=== PATIENT | male | born 1970 | race Caucasian/White ===

== ENCOUNTER 2017-07-07 22:34 | Inpatient (IN) | payer OTHER ==
[~2017-07-07] VITALS: Ht 180.3 cm; Wt 61.2 kg
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
[2017-07-07 22:49] LABS: BASOPHIL % 0.4 %; EOSINOPHIL % 0.2 %; HEMATOCRIT 27.7 % (37.0-53.0); HEMOGLOBIN 9.7 g/dL (12.0-17.0); IMMATURE GRANULOCYTE % 0.7 %; LYMPHOCYTE # 0.8 K/uL (0.8-4.0); MCH 32.7 pg (27.0-34.0); MCV 93.3 fl (83.0-98.0); MONOCYTE # 0.5 K/uL (0.0-1.0); MONOCYTE % 9.5 %; NEUTROPHIL # (ANC) 4.1 K/uL (1.4-9.0); NEUTROPHIL % 74.2 %; NRBC % 0 /100WBC (0-0.00); PLATELET COUNT 223 K/uL (150-450); RBC 2.97 M/uL (4.00-6.00); RDW-CV 12.7 % (11.9-14.6); WBC 5.6 K/uL (4.0-11.0)
[2017-07-07 23:05] LABS: ALBUMIN 2.8 gm/dL (3.5-5.0); ALK PHOS 54 IU/L (33-138); ALT 38 IU/L (12-78); ANION GAP 15.1 (10.0-19.0); AST 69 IU/L (10-40); BLOOD UREA NITROGEN 4 mg/dL (6-24); CHLORIDE 108 mMol/L (96-110); CO2 18 mMol/L (22-32); CREATININE 0.6 mg/dL (0.6-1.3); POTASSIUM 4.1 mMol/L (3.7-5.1); SODIUM 137 mMol/L (135-145); TOTAL BILIRUBIN 0.3 mg/dL (0.0-1.5); TOTAL PROTEIN 5.3 g/dL (6.0-8.4)
[2017-07-07 23:10] LABS: CALCIUM 6.1 mg/dL (8.5-10.5)
[2017-07-08 03:39] LABS: BILIRUBIN URINE NEGATIVE (NEGATIVE); BLOOD URINE 250 /UL (NEGATIVE); COLOR URINE YELLOW (YELLOW); GLUCOSE URINE NEGATIVE (NEGATIVE); KETONE URINE 5 mg/dL (NEGATIVE); LEUKOCYTES URINE NEGATIVE /UL (NEGATIVE); NITRITE URINE NEGATIVE (NEGATIVE); PROTEIN URINE NEGATIVE (NEGATIVE); TURBIDITY URINE CLEAR (CLEAR); UROBILINOGEN URINE NORMAL (NORMAL)
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
[2017-07-08 03:47] LABS: BACTERIA URINE NEGATIVE (NEGATIVE); EPITHELIAL URINE RARE #/HPF (NEGATIVE); WBC URINE NEGATIVE #/HPF (NEGATIVE)
[2017-07-08 03:59] LABS: BARBITURATE NEGATIVE (NEGATIVE); OPIATES NEGATIVE (NEGATIVE)
[2017-07-08 04:08] LABS: AMPHETAMINE NEGATIVE (NEGATIVE)
[2017-07-08 04:09] LABS: COCAINE NEGATIVE (NEGATIVE)
--- NOTE | 2017-07-08 05:01 | NUR ---
Significant Event: The patient is Alert and Oriented x3. Denies Numbness and Tingling. Moves all extremities spontaneously and to command. Lower extremities moderate strength and moves with difficulty. Bedrest, HOB can be up to 30 degrees. Right chest tube to suction, 86ml out this shift. VSS. On room air. Lungs are Clear and Diminished to diminished in the bases. Scattered abrasions and bruising. Chest tube dressing intact to right chest. Slightly nauseated. Pain to chest from rib fractures and chest tube, ice applied. Ice chips and sips of water for now. PIV to the right forearm infusing NS at 125ml/hr. PIV to the Left forearm saline locked. Follow up:
[2017-07-08 08:31] LABS: HEMATOCRIT 27.4 % (37.0-53.0); HEMOGLOBIN 9.5 g/dL (12.0-17.0)
--- NOTE | 2017-07-08 16:29 | NUR ---
Significant Event: Alert and oriented. Vital signs stable. Pain controlled to tolerable level with scheduled ibuprofen. Up to chair this afternoon with walker and 2 person assist. Chest tube intact with 30mL output. Pleasant and cooperative. Follow up: continue
[2017-07-09 04:54] LABS: BASOPHIL % 0.4 %; EOSINOPHIL % 0.6 %; HEMATOCRIT 25.4 % (37.0-53.0); HEMOGLOBIN 8.9 g/dL (12.0-17.0); IMMATURE GRANULOCYTE % 0.2 %; MCH 32.5 pg (27.0-34.0); MCV 92.7 fl (83.0-98.0); MONOCYTE # 0.6 K/uL (0.0-1.0); MONOCYTE % 12.4 %; MPV 8.6 fl (9.4-12.4); NEUTROPHIL % 64.4 %; NRBC % 0 /100WBC (0-0.00); PLATELET COUNT 198 K/uL (150-450); RBC 2.74 M/uL (4.00-6.00); RDW-CV 12.8 % (11.9-14.6); WBC 4.7 K/uL (4.0-11.0)
[2017-07-09 05:12] LABS: ALBUMIN 2.7 gm/dL (3.5-5.0); ANION GAP 10.1 (10.0-19.0); CALCIUM 7.5 mg/dL (8.5-10.5); CHLORIDE 106 mMol/L (96-110); CO2 25 mMol/L (22-32); CREATININE 0.5 mg/dL (0.6-1.3); POTASSIUM 4.1 mMol/L (3.7-5.1); SODIUM 137 mMol/L (135-145)
[2017-07-09 05:13] LABS: BLOOD UREA NITROGEN 7 mg/dL (6-24); PHOSPHORUS 1.4 mg/dL (2.5-4.9)
--- NOTE | 2017-07-09 05:47 | NUR ---
Significant Event: PT A/O X3, NO COMPLAINTS OF N/T. MOVES ALL EXTREMITIES WELL. REMAINS SR-ST ON MONITOR, AFEBRILE. REMAINS ON RA, CT OUTPUT 50 ML S/S DRAINAGE, NO CREPETIS AROUND CT INSERTION SITE. OCCASIONAL COMPLAINTS OF SHARP PAIN NEAR CHEST TUBE INSERTION SITE WITH DEEP BREATHS OR COUGHING. TOLERATING PO INTAKE WELL, NO BM THIS SHIFT. UOP ADEQUATE. Follow up: CHANGE TO MED/SURG STATUS TODAY, CONTINUE TO ENCOURAGE MOBILITY TOLERATED. MICHAEL HEATH RN
--- NOTE | 2017-07-09 13:35 | NUR ---
Introduced self and role of care management to pt. Pt lives in [place] with his mother and has plenty of family members around. He does not have insurance just the liability. He does not have a walker but states he can find one. I encouraged him to ask family to find one or borrow one. He states home once the chest tube is out. WIll continue to follow and assist as needed.
--- NOTE | 2017-07-09 16:51 | NUR ---
Significant Event: Patient is A/O x3. No numbness/tingling. Patient reports pain in back, rib, hip area. Equal strength in all extremeties, partial weight bearing on the left leg when ambulating with PT. SR with HRs 80s-90s, afibrile, right lateral chest tube, changed to waterseal, 10ml out this shift, no SOB, no crepitis. Lungs sounds clear, dim on the LRL, patient uses IS frequently. Patient has hypoactive bowel sounds, poor appetite, no BM. Vds per urinal, clear yellow. Patient made floor status today. Follow up: Continue to monitor.
[2017-07-10 04:57] LABS: HEMATOCRIT 25.1 % (37.0-53.0); HEMOGLOBIN 8.8 g/dL (12.0-17.0)
--- NOTE | 2017-07-10 17:23 | NUR ---
AAOx3. Cooperative with cares. Up with 1 assist, GB, walker; increased pain w/ambulation. Bilat PIVs s/l'd. Tolerating regular diet well. R)chest tube pulled this afternoon by ; foam tape dressing intact. Gave Percocet x1 today with relief. Possible d/c tomorrow.
--- NOTE | 2017-07-11 03:36 | NUR ---
Significant Event: PT AO. VSS ON RA, AFEBRILE. DRESSING TO R CHEST FROM CHEST TUBE REMOVAL SITE C/D/I. DID NOT AMBULATE THIS SHIFT. VOIDED PER URINAL. TOLERATED SMALL AMOUNT OF REGULAR DIET. SALINE LOCKED IVS TO R AND L FA. PRN PERCOCET X1 AT 0039. SCHEDULED MOTRIN. USES INCENTIVE SPIROMETER. PLAN IS TO GO HOME WITH HOME HEALTH WHEN READY. Follow up: CONTINUE TO MONITOR
[2017-07-11] MEDS ORDERED: COLACE100 MG PO (13:03)
[2017-07-11] MEDS ORDERED: MOTRIN800 MG PO (13:03)
[2017-07-11] MEDS ORDERED: PERCOCET 5-3251 EACH PO (13:04)
[2017-07-11] MEDS ORDERED: ASPIRIN325 MG PO (13:04)
--- NOTE | 2017-07-11 16:53 | NUR ---
DISCHARGE: Pt. and mother were explained discharge instructions, educated on new medications, pneumothorax cares, quitting smoking, and scripts. No questions or concerns. Verbalized understanding of teaching. IV removed by primary nurse. Left with all belongings and prescriptions. Taken to front door by virtual nurse and driven home by mother.
== END 2017-07-11 14:19 | disposition disaster alternative care site (69) | DRG 964 ==
LOC: GACC 22:34 → GMSU 07-08 01:05 → GICU 07-08 01:05 → GMSU 07-09 21:07
PROVIDERS: Emergency Medicine; Physician Assistant; ADMIT Surgery
DX: S32.302A Unspecified fracture of left ilium, initial encounter for closed fracture (principal); J90 Pleural effusion, not elsewhere classified; S27.321A Contusion of lung, unilateral, initial encounter; S22.43XA Multiple fractures of ribs, bilateral, initial encounter for closed fracture; S12.9XXA Fracture of neck, unspecified, initial encounter; S32.009A Unspecified fracture of unspecified lumbar vertebra, initial encounter for closed fracture; S12.600A Unspecified displaced fracture of seventh cervical vertebra, initial encounter for closed fracture; S22.000A Wedge compression fracture of unspecified thoracic vertebra, initial encounter for closed fracture; S22.070A Wedge compression fracture of T9-T10 vertebra, initial encounter for closed fracture; S22.080A Wedge compression fracture of T11-T12 vertebra, initial encounter for closed fracture; S32.050A Wedge compression fracture of fifth lumbar vertebra, initial encounter for closed fracture; K63.9 Disease of intestine, unspecified; R58 Hemorrhage, not elsewhere classified; V49.88XA Car occupant (driver) (passenger) injured in other specified transport accidents, initial encounter; Y92.410 Unspecified street and highway as the place of occurrence of the external cause; Y93.89 Activity, other specified; F17.210 Nicotine dependence, cigarettes, uncomplicated; Z87.81 Personal history of (healed) traumatic fracture
CPT/HCPCS: J0690; J1650; J2250; J7030; Q9967